=== PATIENT | male | born 1980 | race African-American/Black ===

== ENCOUNTER 2018-10-27 20:29 | Inpatient (IN) | payer OTHER ==
[~2018-10-27] VITALS: Ht 185.4 cm; Wt 117.9 kg
[2018-10-27 20:50] VITALS: Ht 185.4 cm; Wt 117.9 kg
[2018-10-27 21:37] LABS: BASOPHIL % 0.1 % (0-2); PLATELET COUNT 260 x10^3mcL (130-400)
[2018-10-27 21:42] LABS: RED CELL DISTRIBUTION WIDTH 15.4 % (11.5-14.5)
[2018-10-27 21:43] LABS: CALCIUM 8.7 mg/dL (8.5-10.1); CARBON DIOXIDE 28.8 mmol/L (21-32); CHLORIDE SERUM 102 mmol/L (98-107); CREATININE SERUM 1.2 mg/dL (0.7-1.3); GFR1 > 60 mL/min; GLUCOSE SERUM 121 mg/dL (74-106); POTASSIUM SERUM 3.9 mmol/L (3.5-5.1); SODIUM SERUM 139 mmol/L (136-145)
[2018-10-27 21:47] LABS: ALKALINE PHOSPHATASE 86 U/L (46-116); ALT/SGPT 25 U/L (16-63); AST/SGOT 17 U/L (15-37); BILIRUBIN TOTAL 0.37 mg/dL (0.20-1.00); LIPASE 147 IU/L (73-393)
[2018-10-27 21:48] LABS: ALBUMIN 2.9 g/dL (3.4-5.0); TOTAL PROTEIN, SERUM 8.3 g/dL (6.4-8.2)
[2018-10-28] MEDS ORDERED: TRAZODONE50 M1 (00:25)
[2018-10-28] MEDS ORDERED: ZOLOFT25 MG (00:25)
[2018-10-28 01:14] VITALS: BP 111/64
[2018-10-28 02:39] LABS: MAGNESIUM 2.2 mg/dL (1.8-2.4); PHOSPHOROUS 2.7 mg/dL (2.5-4.9)
[2018-10-28 02:43] LABS: CHOLESTEROL/HDL RATIO 2.8
[2018-10-28 03:41] LABS: microscopic required? NO
[2018-10-28 04:25] LABS: UA SPECIFIC GRAVITY >=1.030 (1.005-1.035); urine erythrocyte NEGATIVE (NEGATIVE)
[2018-10-28 04:50] LABS: AMPHETAMINE QUAL UR POSITIVE (See below)
[2018-10-28 05:08] VITALS: BP 115/47
[2018-10-28 06:22] LABS: BASOPHIL % 0.3 % (0-2); PLATELET COUNT 241 x10^3mcL (130-400)
[2018-10-28 06:43] LABS: CALCIUM 8.5 mg/dL (8.5-10.1); CARBON DIOXIDE 28.4 mmol/L (21-32); CHLORIDE SERUM 105 mmol/L (98-107); CREATININE SERUM 1.1 mg/dL (0.7-1.3); GFR1 > 60 mL/min; GLUCOSE SERUM 128 mg/dL (74-106); POTASSIUM SERUM 3.9 mmol/L (3.5-5.1); SODIUM SERUM 140 mmol/L (136-145)
[2018-10-28 06:56] LABS: RED CELL DISTRIBUTION WIDTH 15.5 % (11.5-14.5)
[2018-10-28 09:07] VITALS: BP 111/68
[2018-10-28 16:21] VITALS: BP 131/82
[2018-10-28 22:34] VITALS: BP 140/74
[2018-10-29 05:10] VITALS: BP 119/72
[2018-10-29 06:48] LABS: BASOPHIL % 0.2 % (0-2); PLATELET COUNT 265 x10^3mcL (130-400)
[2018-10-29 07:19] LABS: CALCIUM 8.3 mg/dL (8.5-10.1); CHLORIDE SERUM 105 mmol/L (98-107); CREATININE SERUM 1.3 mg/dL (0.7-1.3); GFR1 > 60 mL/min; GLUCOSE SERUM 96 mg/dL (74-106); MAGNESIUM 2.1 mg/dL (1.8-2.4); PHOSPHOROUS 3.9 mg/dL (2.5-4.9); POTASSIUM SERUM 4.5 mmol/L (3.5-5.1); SODIUM SERUM 142 mmol/L (136-145)
[2018-10-29 08:45] VITALS: BP 114/73
[2018-10-29 17:22] VITALS: BP 133/84
[2018-10-29 20:50] VITALS: BP 114/69
[2018-10-30 04:27] VITALS: BP 127/70
[2018-10-30 06:50] LABS: BASOPHIL % 0.2 % (0-2); PLATELET COUNT 273 x10^3mcL (130-400)
[2018-10-30 07:12] LABS: CARBON DIOXIDE 29.8 mmol/L (21-32); CHLORIDE SERUM 103 mmol/L (98-107); CREATININE SERUM 1.2 mg/dL (0.7-1.3); GFR1 > 60 mL/min; GLUCOSE SERUM 104 mg/dL (74-106); PHOSPHOROUS 3.5 mg/dL (2.5-4.9); POTASSIUM SERUM 4.2 mmol/L (3.5-5.1); SODIUM SERUM 139 mmol/L (136-145)
[2018-10-30 10:12] VITALS: BP 112/69
[2018-10-30 18:48] VITALS: BP 120/76
[2018-10-30 21:01] VITALS: BP 120/66
[2018-10-31 05:48] VITALS: BP 114/71
[2018-10-31 07:35] LABS: CARBON DIOXIDE 28.8 mmol/L (21-32); CHLORIDE SERUM 103 mmol/L (98-107); CREATININE SERUM 1.3 mg/dL (0.7-1.3); GFR1 > 60 mL/min; GLUCOSE SERUM 110 mg/dL (74-106); SODIUM SERUM 139 mmol/L (136-145)
[2018-10-31 07:44] LABS: BASOPHIL % 0.3 % (0-2); PLATELET COUNT 270 x10^3mcL (130-400)
[2018-10-31 07:59] LABS: RED CELL DISTRIBUTION WIDTH 15.3 % (11.5-14.5)
[2018-10-31 08:09] VITALS: BP 115/68
[2018-10-31 12:16] VITALS: BP 130/77
[2018-10-31] MEDS ORDERED: KEFLEX500 M1 PO (14:58)
[2018-10-31 15:49] VITALS: BP 130/77
[2018-10-31 16:06] VITALS: BP 122/82
[2018-10-31 21:24] VITALS: BP 119/64
[2018-11-01 04:47] VITALS: BP 113/55
[2018-11-01 09:12] VITALS: BP 138/71
[2018-11-01 16:41] VITALS: BP 133/77
[2018-11-01 20:15] VITALS: BP 140/80
[2018-11-02 05:44] VITALS: BP 131/74
[2018-11-02 07:27] VITALS: BP 126/63
[2018-11-02 12:03] VITALS: BP 123/84
[2018-11-02 13:25] VITALS: BP 123/84
== END 2018-11-02 15:07 | disposition home or self-care (01) | DRG 263 ==
LOC: ED 20:29 → EDBD 23:55 → MU 23:55
PROVIDERS: Emergency Medicine; Family Medicine; General Practice; Surgery
PROC: 0FT44ZZ Resection of Gallbladder, Percutaneous Endoscopic Approach (ICD-10-PCS; principal; 2018-10-29 12:00)
DX: K80.00 Calculus of gallbladder with acute cholecystitis without obstruction (principal); E44.0 Moderate protein-calorie malnutrition; R73.03 Prediabetes; F15.10 Other stimulant abuse, uncomplicated; E66.9 Obesity, unspecified; F20.0 Paranoid schizophrenia; F11.10 Opioid abuse, uncomplicated; F17.210 Nicotine dependence, cigarettes, uncomplicated; F31.9 Bipolar disorder, unspecified; Z71.51 Drug abuse counseling and surveillance of drug abuser; Z68.34 Body mass index [BMI] 34.0-34.9, adult; Z23 Encounter for immunization
CPT/HCPCS: 90658; J0330; J1170; J2175; J2250; J2270; J2405; J2543; J2704; J3010; J3490; J7030; J7120; Q0092